=== PATIENT | female | born 2000 | race Two or more races ===

== ENCOUNTER 2024-11-19 16:35 | Emergency (ER) | payer OTHER, MEDICAID ==
[~2024-11-19] VITALS: Ht 190.5 cm; Wt 154.2 kg
[2024-11-19] MEDS ORDERED: DICYCLOMINE HCL 20 MG TABLET ONE (17:59)
[2024-11-19] MEDS ORDERED: ONDANSETRON 4 MG/2 ML VIAL ONE (18:00)
[2024-11-19] MEDS ORDERED: HYDROMORPHONE 2 MG/1 ML DISP.SYRIN ONE (18:00)
[2024-11-19] MEDS ORDERED: HYDROMORPHONE 1 MG/1 ML DISP.SYRIN ONE (18:00)
[2024-11-19 18:03] LABS: BASOPHILS # (AUTO) 0.1 K/UL (0.0-0.2); BASOPHILS % (AUTO) 1.1 % (0.0-2.0); EOSINOPHILS # (AUTO) 0.2 K/uL (0.0-0.7); EOSINOPHILS % (AUTO) 2.1 % (0.0-7.0); HEMATOCRIT 33.8 % (31.2-41.9); LYMPHOCYTES # (AUTO) 2.9 K/uL (0.8-4.8); LYMPHOCYTES % (AUTO) 25.9 % (20.5-51.5); MEAN CORPUSCULAR HEMOGLOBIN 28.6 uug (24.7-32.8); MEAN CORPUSCULAR HGB CONC 33 g/dL (32.3-35.6); MEAN CORPUSCULAR VOLUME 87.4 fL (75.5-95.3); MONOCYTES # (AUTO) 0.6 K/uL (0.1-1.30); MONOCYTES % (AUTO) 5.5 % (0.0-11.0); NEUTROPHILS # (AUTO) 7.3 K/uL (1.8-8.9); NEUTROPHILS % (AUTO) 65.4 % (38.5-71.5); PLATELET COUNT (AUTO) 326 K/uL (179-408); RED BLOOD CELL COUNT(AUTO) 3.86 MIL/uL (3.63-4.92); RED CELL DISTRIBUTION WIDTH 16.9 % (12.3-17.7); WHITE BLOOD COUNT (AUTO) 11.2 K/uL (3.8-11.8)
[2024-11-19] MEDS: ONDANSETRON 4 MG/2 ML VIAL IV ONE (18:05)
[2024-11-19 18:06] LABS: DIFFERENTIAL COMMENT 1
[2024-11-19 18:09] LABS: CALCIUM 8.6 mg/dL (8.5-10.1); CARBON DIOXIDE 22 mmol/L (21-32); CHLORIDE 108 mmol/L (98-107); CREATININE 0.7 mg/dL (0.6-1.3); GLUCOSE 93 mg/dL (74-106); POTASSIUM 4.4 mmol/L (3.5-5.1); SODIUM SERUM 140 mmol/L (136-145); UREA NITROGEN, BLOOD 11 mg/dL (7-18)
[2024-11-19] MEDS: DICYCLOMINE HCL 20 MG TABLET PO SCH (18:14)
[2024-11-19 18:15] LABS: ALANINE AMINOTRANSFERASE 28 U/L (14-59); ALBUMIN 2.9 g/dL (3.4-5.0); ALKALINE PHOSPHATASE 124 U/L (50-136); ASPARTATE AMINOTRANSFERASE 30 U/L (15-37); BILIRUBIN,DIRECT 0.1 mg/dL (0.0-0.2); BILIRUBIN,TOTAL 0.4 mg/dL (0.2-1.0); TOTAL PROTEIN, SERUM 6.6 g/dL (6.4-8.2)
[2024-11-19] MEDS: HYDROMORPHONE 1 MG/1 ML DISP.SYRIN IV ONE (18:15)
[2024-11-19 18:29] LABS: PREGNANCY TEST SERUM QUAN < 1 miul/L (0-6)
[2024-11-19] MEDS: KETOROLAC TROMETHAMINE 15 MG INJ IVP ONE (18:59)
[2024-11-19 19:26] LABS: *BILIRUBIN,URIN NEGATIVE (NEGATIVE); *BLOOD, URINE NEGATIVE (NEGATIVE); *CLARITY,URINE CLEAR (CLEAR); *COLOR,URINE YELLOW (YELLOW); *KETONES,URINE NEGATIVE (NEGATIVE); *PROTEIN,URINE NEGATIVE (NEGATIVE); *UROBILINOGEN,URINE 0.2 E.U./dl (NORMAL); LEUKOCYTE ESTERASE ,URINE NEGATIVE (NEGATIVE); NITRITE, URINE NEGATIVE (NEGATIVE); UGLUCOSE NEGATIVE (NEGATIVE)
[2024-11-19 22:24] VITALS: BP 133/90; TEMP 98; O2SAT 95
== END 2024-11-19 19:45 | disposition home or self-care (01) ==
LOC: ER 16:35
DX: F11.23 Opioid dependence with withdrawal (principal); G89.29 Other chronic pain; M79.7 Fibromyalgia; M54.9 Dorsalgia, unspecified; R11.2 Nausea with vomiting, unspecified; R10.2 Pelvic and perineal pain; Z88.0 Allergy status to penicillin; Z88.5 Allergy status to narcotic agent
CPT/HCPCS: 99285; 96374; 76856; 96375; 80076; 80048; 81003; 85025; 84702; 36415; J1171 ×2; J2405; J7040; A4606; A4663

== ENCOUNTER 2024-12-18 17:35 | Emergency (ER) | payer OTHER, MEDICAID ==
[~2024-12-18] VITALS: Ht 188 cm; Wt 145.1 kg
[2024-12-18] MEDS ORDERED: FAMOTIDINE. 20 MG/2 ML VIAL IV ONE (18:08)
[2024-12-18] MEDS ORDERED: MAG HYDROX/AL HYDROX/SIMETH 30 ML LIQUID UDC ONE (18:08)
[2024-12-18] MEDS ORDERED: LIDOCAINE VISCUS 2% 15 ML UDC ONE (18:08)
[2024-12-18] MEDS ORDERED: ONDANSETRON 4 MG/2 ML VIAL ONE (18:08)
[2024-12-18 18:14] LABS: BASOPHILS # (AUTO) 0.1 K/UL (0.0-0.2); BASOPHILS % (AUTO) 0.6 % (0.0-2.0); EOSINOPHILS # (AUTO) 0.3 K/uL (0.0-0.7); HEMOGLOBIN 11.7 g/dL (10.9-14.3); LYMPHOCYTES # (AUTO) 2.6 K/uL (0.8-4.8); LYMPHOCYTES % (AUTO) 16.1 % (20.5-51.5); MEAN CORPUSCULAR HEMOGLOBIN 28.9 uug (24.7-32.8); MEAN CORPUSCULAR HGB CONC 33 g/dL (32.3-35.6); MONOCYTES # (AUTO) 1.6 K/uL (0.1-1.30); MONOCYTES % (AUTO) 9.8 % (0.0-11.0); NEUTROPHILS # (AUTO) 11.6 K/uL (1.8-8.9); NEUTROPHILS % (AUTO) 71.5 % (38.5-71.5); PLATELET COUNT (AUTO) 355 K/uL (179-408); RED BLOOD CELL COUNT(AUTO) 4.04 MIL/uL (3.63-4.92); RED CELL DISTRIBUTION WIDTH 14.9 % (12.3-17.7); WHITE BLOOD COUNT (AUTO) 16.3 K/uL (3.8-11.8)
[2024-12-18 18:17] LABS: *BILIRUBIN,URIN NEGATIVE (NEGATIVE); *BLOOD, URINE NEGATIVE (NEGATIVE); *CLARITY,URINE CLEAR (CLEAR); *COLOR,URINE YELLOW (YELLOW); *KETONES,URINE TRACE (NEGATIVE); *PROTEIN,URINE 1+ (NEGATIVE); *UROBILINOGEN,URINE 0.2 E.U./dl (NORMAL); LEUKOCYTE ESTERASE ,URINE TRACE (NEGATIVE); NITRITE, URINE NEGATIVE (NEGATIVE); UGLUCOSE NEGATIVE (NEGATIVE)
[2024-12-18 18:18] LABS: DIFFERENTIAL COMMENT 1
[2024-12-18 18:20] LABS: *URINE HCG, QUAL NEGATIVE (NEGATIVE)
[2024-12-18 18:22] LABS: CALCIUM 8.9 mg/dL (8.5-10.1); POTASSIUM 3.6 mmol/L (3.5-5.1)
[2024-12-18 18:28] LABS: BILIRUBIN,DIRECT 0.2 mg/dL (0.0-0.2); BILIRUBIN,TOTAL 0.4 mg/dL (0.2-1.0); TOTAL PROTEIN, SERUM 7.7 g/dL (6.4-8.2)
[2024-12-18 18:29] LABS: ETHANOL < 3 MG/DL (0-10)
[2024-12-18 18:35] LABS: *AMPHETAMINE, URINE NEGATIVE (NEGATIVE); *BARBITURATE, URINE NEGATIVE (NEGATIVE); *BENZODIAZEPINE, URINE NEGATIVE (NEGATIVE); *CANNABINOID, URINE POSITIVE (NEGATIVE); *COCCAINE, URINE NEGATIVE (NEGATIVE); *OPIATE, URINE NEGATIVE (NEGATIVE); *PHENCYCLIDINE SCREEN,URINE NEGATIVE (NEGATIVE); FENTANYL, URINE NEGATIVE (NEGATIVE)
[2024-12-18 18:41] LABS: BACTERIA,URINE MODERATE /HPF (NONE SEEN); SQUAMOUS EPITHELIAL CELL,UR MODERATE /HPF (NONE SEEN); WBC,URINE 0-3 /HPF (0-3)
[2024-12-18] MEDS: IV NORMAL SALINE 1000 ML BAG IV ONE (18:41)
[2024-12-18] MEDS: FAMOTIDINE. 20 MG/2 ML VIAL IV ONE (18:41)
[2024-12-18] MEDS: ONDANSETRON 4 MG/2 ML VIAL IV ONE (18:42)
[2024-12-18] MEDS: MAG HYDROX/AL HYDROX/SIMETH 30 ML LIQUID UDC PO ONE (18:42)
[2024-12-18] MEDS: LIDOCAINE VISCUS 2% 15 ML UDC MM ONE (18:42)
[2024-12-18] MEDS: KETOROLAC TROMETHAMINE 30 MG INJ IM ONE (19:38)
[2024-12-18] MEDS ORDERED: HYDROMORPHONE HCL 2 MG TABLET ONE (19:47)
[2024-12-18] MEDS: HYDROMORPHONE HCL 2 MG TABLET PO ONE (19:56)
[2024-12-18] MEDS ORDERED: DOXYCYCLINE HYCLATE 100 MG TABLET ONE (22:03)
[2024-12-18] MEDS: DOXYCYCLINE HYCLATE 100 MG TABLET PO ONE (22:04)
[2024-12-18] MEDS ORDERED: ONDA4TAB11 PO (22:07)
[2024-12-18] MEDS ORDERED: DOXY100C5 PO (22:07)
[2024-12-18 23:37] VITALS: BP 135/99; TEMP 98.4; O2SAT 99
== END 2024-12-18 23:38 | disposition home or self-care (01) ==
LOC: ER 17:35
DX: J06.9 Acute upper respiratory infection, unspecified (principal); J18.9 Pneumonia, unspecified organism; R11.2 Nausea with vomiting, unspecified; R10.9 Unspecified abdominal pain; G43.909 Migraine, unspecified, not intractable, without status migrainosus; M79.7 Fibromyalgia; Z88.0 Allergy status to penicillin; Z88.5 Allergy status to narcotic agent; Z20.822 Contact with and (suspected) exposure to COVID-19
CPT/HCPCS: 87804 ×2; 80076; 80048; 81001; 84703; 83690; 85025; 85610; 87426; 87086; 36415; 71045; 99285; 96361; 96374; 96375; 83605; 80320; 80307; J3490; J2405; J7040; A4606; A4663; G0480; J1885